=== PATIENT | female | born 1955 | race Caucasian/White ===

== ENCOUNTER 2020-08-11 11:40 | Emergency (ER) | payer BC ==
[2020-08-11 12:04] VITALS: BP 133/74; PULSE 62; TEMP 98.9; BMI 25.2
== END 2020-08-11 13:12 | disposition home or self-care (01) ==
LOC: FER 11:40
DX: M79.662 Pain in left lower leg (principal); R25.2 Cramp and spasm
CPT/HCPCS: 99281-25